=== PATIENT | female | born 1965 | race Two or more races ===

== ENCOUNTER 2021-08-29 11:34 | Day surgery (SDC) | payer OTHER ==
[~2021-08-29 11:34] MED LIST: CATAFLAN PO; NEURONTIN300 MG
== END 2021-08-29 20:30 | disposition home or self-care (01) ==
LOC: CIR.AMB 11:34
PROVIDERS: ATTEND Obstetrics & Gynecology Obstetrics
DX: N84.0 Polyp of corpus uteri (principal); Z20.822 Contact with and (suspected) exposure to COVID-19